=== PATIENT | female | born 1975 | race Caucasian/White ===

== ENCOUNTER 2019-01-29 10:47 | Day surgery (SDC) | payer OTHER ==
[2019-01-29] MEDS ORDERED: ceFAZolin 2 GM/DEXTROSE 100 ML IV ONE (11:06)
[2019-01-29] MEDS ORDERED: BUPIVACAINE 0.5% 30 ML SDV ONE (11:15)
[2019-01-29] MEDS ORDERED: LIDOCAINE 1% 2 ML INJ ID PRN (11:34)
[2019-01-29] MEDS ORDERED: LR 1,000 ML IV ONE (11:34)
[2019-01-29] MEDS ORDERED: MIDAZOLAM 2 MG/2 ML VIAL IVP ONE (11:55)
--- NOTE | 2019-01-29 11:59 | PDANEPAE ---
ANE History of Present Illness Right foot Jayme with PP repair. Arthroplasty 2nd MTP ANE Past Medical History - Cardiovascular History Hx Hypertension: No Hx Arrhythmias: No Hx Chest Pain: No Hx Coronary Artery / Peripheral Vascular Disease: No Hx CHF / Valvular Disease: No Hx Palpitations: No - Pulmonary History Hx COPD: No Hx Asthma/Reactive Airway Disease: No Hx Recent Upper Respiratory Infection: No Hx Oxygen in Use at Home: No Hx Sleep Apnea: No Sleep Apnea Screening Result - Last Documented: Negative - Neurologic History Hx Cerebrovascular Accident: No Hx Seizures: No Hx Dementia: No - Endocrine History Hx Diabetes: No Hypothyroid: No Hyperthyroid: No Obesity: no - Renal History Hx Renal Disorders: No - Liver History Hx Hepatic Disorders: No - Neurological & Psychiatric Hx Hx Neurological and Psychiatric Disorders: Yes Neurological / Psychiatric History Comment: anxiety. depression - Cancer History Hx Cancer: No - Congenital Disorder History Hx Congenital Disorders: No - GI History Hx Gastrointestinal Disorders: No - Other Health History Other Health History: wears reading glasses - Chronic Pain History Chronic Pain: Yes (back pain) - Surgical History Prior Surgeries: acl repair 1991. back surgery 2009- lumbar discectomy ANE Review of Systems Review of Systems: - Exercise capacity METS (RN): 4 METS ANE Patient History - Allergies Allergies/Adverse Reactions: No Known Allergies Allergy (Verified 01/29/19 11:08) - Home Medications Home Medications: Cymbalta 01/17/19 [Last Taken 01/29/19 07:00] DIAZEPAM HS 01/17/19 [Last Taken 01/15/19] Herbals/Supplements -Info Only 01/17/19 [Last Taken 01/13/19] Provigil 01/17/19 [Last Taken 01/29/19 07:00] busPIRone 01/17/19 [Last Taken 01/29/19 07:00] - NPO status NPO Status: no food or drink >8 hours NPO Since - Liquids (Date): 01/29/19 NPO Since - Liquids (Time): 08:00 NPO Since - Solids (Date): 01/28/19 NPO Since - Solids (Time): 21:30 - Anes Hx Anes Hx: no prior problems - Smoking Hx Smoking Status: Never smoked Marijuana use: No - Alcohol Use Alcohol Use: Rarely - Family Anes Hx Family Anes Hx: none Family Hx Anesthesia Complications: none ANE Labs/Vital Signs - Vital Signs Blood Pressure: 113/69 Heart Rate: 62 Respiratory Rate: 16 O2 Sat (%): 95 Height: 167.64 cm Weight: 72.575 kg ANE Physical Exam - Airway Neck exam: FROM Mallampati Score: Class 1 Mouth exam: normal dental/mouth exam - Pulmonary Pulmonary: no respiratory distress, no rales or rhonchi - Cardiovascular Cardiovascular: regular rate and rhythym, no murmur, rub, or gallop - ASA Status ASA Status: II ANE Anesthesia Plan Anesthesia Plan: GA with mask Total IV Anesthesia: Yes
[2019-01-29] MEDS ORDERED: PROPOFOL/EMULSION 500 MG/50 ML BOTTLE IV ONE (12:23)
[2019-01-29] MEDS ORDERED: LIDOCAINE 2% 5 ML SDV ONE ×2 (12:35)
[2019-01-29] MEDS ORDERED: fentaNYL 100 MCG/2 ML INJ ONE (12:37)
--- NOTE | 2019-01-29 12:37 | PDHPUP ---
History & Physical Update H&P update statement: This history and physical update is based on an assessment of the patient which was completed after admission or registration (within 24 hours), but prior to the surgery/procedure. H&P update: H&P reviewed & patient examined, no change in patient's condition since H&P completed
[2019-01-29] MEDS ORDERED: PROPOFOL 200 MG/20 ML VIAL ONE ×2 (13:17→13:18)
[2019-01-29] MEDS ORDERED: fentaNYL 100 MCG/2 ML INJ IVP PRN (13:22)
[2019-01-29] MEDS ORDERED: DIAZEPAM 5 MG/ML 1 ML SYR IVP PRN (13:22)
[2019-01-29] MEDS ORDERED: ALBUTEROL 3 ML DEYVIAL IH PRN (13:22)
[2019-01-29] MEDS ORDERED: HYDROmorphONE/DILAUDID 1 MG/ML INJ IVP PRN (13:22)
[2019-01-29] MEDS ORDERED: DEXAMETHASONE 4 MG/ML VIAL IVP PRN (13:22)
[2019-01-29] MEDS ORDERED: ONDANSETRON 4 MG/2 ML VIAL IVP PRN ×2 (13:22→14:38)
[2019-01-29] MEDS ORDERED: NALOXONE HCL 0.4 MG/ML INJ IVP PRN (13:22)
[2019-01-29] MEDS ORDERED: OXYCODONE/APAP 5/325 TAB PO PRN (14:38)
--- NOTE | 2019-01-29 15:51 | POSTANESTH ---
Post Anesthetic Evaluation Cardiovascular Status: Normal, Stable Respiratory Status: Normal, Stable Level of Consciousness/Mental Status: Can Participate in Eval Pain Control: Adequate, Prn Tx Ordered Nausea/Vomiting Control: Adequate, Prn Tx Ordered Complications Possibly Related to Anesthesia: None Noted
[2019-01-29 16:13] VITALS: BP 132/75
--- NOTE | 2019-01-30 13:10 | GOP ---
[f rep st] OPERATIVE REPORT DATE OF OPERATION: 01/29/2019 SURGEON: Rahat Chance DPM JOURNEYMAN PIPEFITTER: None. ANESTHESIA: MAC with a local 30 mL 0.5% Marcaine plain. PREOPERATIVE DIAGNOSIS: 1. Hallux valgus, right foot. 2. Metatarsus primus varus, right foot. 3. Metatarsalgia, right foot. 4. Osteoarthritis, right foot. 5. Osteomyelitis, right foot. 6. Dislocation metatarsophalangeal joint, right foot. POSTOPERATIVE DIAGNOSIS: 1. Hallux valgus, right foot. 2. Metatarsus primus varus, right foot. 3. Metatarsalgia, right foot. 4. Osteoarthritis, right foot. 5. Osteomyelitis, right foot. 6. Dislocation metatarsophalangeal joint, right foot. PROCEDURE PERFORMED: 1. Bunionectomy, right foot. 2. First metatarsal osteotomy with bone graft, right foot. 3. Second metatarsal osteotomy, right foot. 4. Arthroplasty with implant, 2nd metatarsophalangeal joint, right foot. 5. Repair dislocation 2nd metatarsophalangeal joint, right foot. 6. Repair flexor tendons, right foot. 7. Transfer flexor tendons, right foot. FINDINGS: Consistent with diagnosis. ESTIMATED BLOOD LOSS: Zero. INDICATIONS: The patient with a longstanding history of pain in the right foot. The patient has att empted and failed all forms of nonsurgical treatment including, but not limited to, immobilization, i ce, anti-inflammatory medication, PRP injections, arch supports. None of this has provided her adequ ate relief, and she has elected to undergo surgical intervention at this time. DESCRIPTION OF PROCEDURE: After identification, the patient brought to the operating room, placed on the operating table in the supine position. Following IV sedation, local anesthesia obtained around the patient's right foot utilizing a total of 30 mL 0.5% Marcaine plain. The foot was then scrubbed , prepped, and draped in the usual aseptic manner. A pneumatic ankle tourniquet was placed on the pa tiehue's right ankle with ample Webril padding. AN Esmarch bandage was utilized to exsanguinate the p atmary's right lower extremity, and then pneumatic ankle tourniquet was then inflated. Attention was first directed to the medial aspect of the patient's right foot where a 5 cm linear srinath gitudinal incision was made at the medial aspect of the 1st metatarsophalangeal joint. This incision was deepened through the subcutaneous tissue over the joint capsule with care being taken to identif y and retract all vital neural and vascular structures. All bleeders were ligated and cauterized as necessary. A lenticular capsulorrhaphy was performed at the medial aspect of the 1st metatarsophalan geal joint. This lenticular piece of capsule was excised and passed from the operative field. Capsu lar structures were reflected dorsally and plantarly thus exposing the 1st metatarsophalangeal joint at the operative site. A McGlamry elevator was inserted from medial to lateral in the 1st metatarsop halangeal joint, extended laterally, thus serving as a lateral soft tissue release. Upon completion of this maneuver, the hallux is more freely mobile, and more translatable into a more medial and niurka ected position. Attention was then directed to the 1st metatarsal bone where a wuraatm-aga-pigjijq Z-shaped Scarf ost eotomy was made in the head, neck, and shaft of the 1st metatarsal bone from medial to lateral using an osteotomy guide. Upon completion of this [id number] osteotomy, the capital fragment was translated laterally into a more anatomically correct position. Following temporary fixation, 2 x 3. 5 headless Arthrex screws were driven obliquely across this osteotomy site to serve as stable fixatio n. Redundant medial bone shelf was excised, remodeled, reinserted into the osteotomy site to serve a s a bone graft. All rough edges of bone were then smoothed with a bone bur. At this time, position of the 1st ray is noted to be excellent, position is anatomic. Incision site was then flushed with normal sterile saline solution. Capsular structures were reappro ximated utilizing 2-0 Vicryl. Subcutaneous tissue reapproximated using 3-0 Vicryl, and skin reapprox imated using 5-0 Vicryl in a running subcuticular suture technique. Attention was then directed to the dorsal aspect of the patient's right foot, where a 4 cm linear srinath gitudinal incision was made over the dorsal aspect of the 2nd metatarsophalangeal joint. This incisi on was deepened through the subcutaneous tissue to the level of the joint capsule with care being bronson en to identify and retract all vital neural and vascular structures. Bleeders were ligated and caute rized as necessary. A linear capsulotomy was performed to the dorsal aspect of the 2nd metatarsophal angeal joint. Capsular structures were reflected medially and laterally, thus exposing the 2nd metat arsophalangeal joint at the operative site. It is noted that extensive synovitis is present within t he 2nd metatarsophalangeal joint, as well as extensive bone spur formation. It is noted that the 2nd metatarsal head is nearly 100% denuded of all cartilage. All bone spur formation is excised and pas sed from the field. Next, a guidewire was inserted from distal to proximal in the central portion of the head of the 2nd metatarsal. Placement of this wire was confirmed with fluoroscopy. An 8 mm dri ll was used to make an aperture for the Cartiva implant in standard technique, and the Cartiva size # 8 implant was inserted into the 2nd metatarsal head with approximately 2 to 3 mm proud distally. Thi s is an arthroplasty of the 2nd metatarsal head with an implant. Attention was then directed to the 2nd metatarsal bone where a Latonia osteotomy was performed in the he ad, neck, and shaft of the 2nd metatarsal dorsal and proximal to the implant. Upon completion of thi s osteotomy, the capital fragment is translated proximally to allow visualization of the plantar plat e and plantar joint complex. The plantar plate is visualized and inspected, and noted to be approxim ately 30% torn laterally. The plantar plate was completely disconnected from the base of the proxima l phalanx, exposing the flexor tendon structures. There is some damage and partial splitting of the flexor tendon apparatus, which was directly repaired using 3-0 Vicryl. The plantar plate structure, as well as the flexor tendons are gathered with a suture gathering instrument with a horizontal mattr ess FiberWire suture placed through both the plantar plate and flexor tendons. Two crossing drill ho les were then made in the base of the proximal phalanx of the 2nd digit, and the FiberWire sutures ar e passed from plantar proximal to dorsal distal through these crossing drill holes. When pulled taut , the flexor tendons and plantar plate are transferred to the base of the proximal phalanx. The 2nd metatarsal head is then brought back out to appropriate length and secured using 2 x 2.0 snap-off scr ews. Placement of these screws was verified using fluoroscopy. Fixation is noted to be excellent, p osition of the 2nd metatarsal is noted to be excellent, implant is noted to be stable. The FiberWire suture was then tied to itself at the dorsal aspect of the 2nd proximal phalanx. When these sutures are pulled taunt and tied, the flexor tendon structure and plantar plate structure are transferred t o the base of the proximal phalanx. Once these FiberWire sutures are tied to themselves at the dorsa l aspect of the proximal phalanx, it is noted that the repair and transfer are very secure and anatom ic. Incision was flushed with normal sterile saline solution. Capsular structures were reapproximat ed utilizing 3-0 Vicryl. Subcutaneous tissue reapproximated using 3-0 Vicryl, and skin reapproximate d utilizing 5-0 Vicryl in a running subcuticular suture technique. The incisions were then dressed w ith Steri-Strips, Padilla silk, 4 x 4 gauze, Webril, Daniel, Omar bandage. The patient transported to e postoperative recovery with vital signs stable and vascular status intact to right foot. The patie nt tolerated procedure and anesthesia well. HEMOSTASIS: Right pneumatic ankle tourniquet inflated to 250 mmHg for 60 minutes. MATERIALS: Cartiva size 8, 3.5 headless Arthrex screws x2, 2.0 Arthrex snap-off screws x2, Arthrex C NE kit times. 2-0, 3-0, 5-0 Vicryl. INJECTABLES: None. CONDITION: Stable. /[id number]/MODL
== END 2019-01-29 16:00 | disposition home or self-care (01) ==
LOC: FSGY 10:47
PROVIDERS: ATTEND Podiatrist
DX: M20.11 Hallux valgus (acquired), right foot (principal); M19.071 Primary osteoarthritis, right ankle and foot; M86.671 Other chronic osteomyelitis, right ankle and foot; S93.124A Dislocation of metatarsophalangeal joint of right lesser toe(s), initial encounter; X58.XXXA Exposure to other specified factors, initial encounter; Y99.9 Unspecified external cause status
CPT/HCPCS: C1713; J0690; J2250; J2704; J3010